=== PATIENT | female | born 1965 | race African-American/Black ===

== ENCOUNTER 2018-05-21 19:09 | Emergency (ER) | payer SELFPAY ==
[~2018-05-21] VITALS: Ht 165.1 cm; Wt 1130.0 kg
[2018-05-21] MEDS ORDERED: LIDOCAINE HCL/EPINEPHRINE 1%-EPI 1:100,000 30 ML VIAL INFIL ONE (19:30)
[2018-05-21] MEDS ORDERED: MORPHINE SULFATE 10 MG/ML CPJ IM ONE (19:30)
[2018-05-21 19:43] VITALS: BP 182/93
== END 2018-05-21 21:28 ==
LOC: ER 19:09
DX: S01.01XA Laceration without foreign body of scalp, initial encounter (principal); S62.606A Fracture of unspecified phalanx of right little finger, initial encounter for closed fracture; W18.39XA Other fall on same level, initial encounter; Y93.89 Activity, other specified; Y92.89 Other specified places as the place of occurrence of the external cause; Y99.8 Other external cause status
CPT/HCPCS: 12002; 29130; 73140; 96372; 99284; A4217; J2270; Z7610